=== PATIENT | female | born 1925 | race Caucasian/White ===

== ENCOUNTER 2016-09-16 12:27 | Inpatient (IN) ==
[2016-09-16 12:57] LABS: MANUAL DIFF NEEDED? NO
[2016-09-16 13:06] LABS: EOS# 0.66 X1000 (0.0-0.7); EOS% 10.7 % (0.0-10.0); HEMATOCRIT 36.4 % (37.0-47.0); HEMOGLOBIN 12.6 g/dL (12.0-16.0); LYMPH# 1.04 X1000 (1.2-3.4); LYMPH% 16.8 % (20.5-51.1); MCH 31.8 PG (27-31); MCHC 34.6 g/dL (33-37); MCV 91.9 FL (81-99); MONO# 1.02 X1000 (0.11-0.59); MONO% 16.5 % (1.7-9.3); MPV 12.6 FL (7.4-10.4); PLT 149 X1000 (130-400); RBC 3.96 XMIL (4.2-5.4)
--- NOTE | 2016-09-16 13:11 | PROVIDER DOCUMENTATION ---
HPI-General Adult - General Chief Complaint: Weakness Stated Complaint: GENERALIZED WEAKNESS Time Seen by Provider: 09/16/16 12:30 Source: patient Allergies/Adverse Reactions: Patient Allergies Allergy/AdvReac Type Severity Reaction Status Date / Time No Known Allergies Allergy Verified 09/16/16 13:05 Home Medications: Home Medication List Medication Instructions Recorded Confirmed Last Taken Type Metoprolol [Lopressor] 100 mg PO QAM 10/02/12 09/16/16 09/16/16 09:00 History PRAVAstatin [Pravachol] 10 mg PO QAM 12/28/12 09/16/16 09/16/16 09:00 History Furosemide 20 mg PO QAM 04/18/16 09/16/16 09/16/16 09:00 History Potassium Chloride E.r. [Klor-Con] 10 meq PO BID 04/18/16 09/16/16 09/16/16 09: 00 History Losartan [Cozaar] 100 mg PO DAILY 09/16/16 09/16/16 09/16/16 09:00 History Meloxicam 7.5 mg PO DAILY 09/16/16 09/16/16 09/16/16 09:00 History - History of Present Illness -Gen Adult Nature of Presenting Problems: 89 yo WF called ambulance due to weakness. Says she has diagnosed with UTI and is not sure if its gone. Also history of low Na. She wants that checked out. Noted on initial exam to be in a-fib. No PMH of this. Pain Radiation: reports: no radiation Onset/Duration: reports: 3 days ago Timing: reports: still present Context/Activities at Onset: reports: none Associated Symptoms: reports: fatigue, genitourinary problems, malaise, weakness . denies: back/neck pain, chest pain, constipation, fever/chills, syncope, vomiting Similar Symptoms Previously?: Yes Recently seen or treated by another doctor?: Yes Review of Systems - Adult - REVIEW OF SYSTEMS - ADULT Constitutional: reports: see pk VILLARREAL. denies: fever Eyes: reports: no symptoms reported Ears, Nose, Mouth & Throat: reports: no symptoms reported Cardiovascular: reports: no symptoms reported. denies: palpitations, syncope Respiratory: reports: no symptoms reported Gastrointestinal: reports: no symptoms reported Genitourinary: reports: no symptoms reported Musculoskeletal: reports: no symptoms reported Integumentary: reports: no symptoms reported Neurological: reports: no symptoms reported, other (poor hearing venecia R ear) Psychiatric: reports: no symptoms reported Endocrine: reports: no symptoms reported Hematologic/Lymphatic: reports: no symptoms reported Allergic/Immunologic: reports: no symptoms reported All Other Systems: Reviewed and Negative Past History - Adult - PAST MEDICAL HISTORY-ADULT Review of Records: reports: Old Records Reviewed, Nursing Assessment Review, Medications Reviewed, Social history reviewed & non-contributory. Cardiovascular: reports: HTN. denies: A-Fib, palpitations Respiratory: reports: denies history Gastrointestinal: reports: denies history Obstetrical/Gynecological: reports: denies history Genitourinary: reports: denies history Musculoskeletal: reports: arthritis Neurological: reports: other (hearing loss) Psychiatric: reports: denies history Endocrine/Immune: reports: denies history Other Conditions: reports: other (hyponatremia) - FAMILY HISTORY Family History: reviewed, not pertinent - SOCIAL HISTORY Smoking: denies Substance Use: none/never Alcohol Use Frequency: never Living Situation: alone Physical Exam-General - PHYSICAL EXAM-ADULT Initial Vital Signs Reviewed: Yes - CONSTITUTIONAL General Appearance: appears well, alert - EYES Eyes: PERRL/EOMI, pale conjunctivae - HEAD, EARS, NOSE, MOUTH & THROAT HENMT: normal ENT inspection. negative: moist mucous membranes - NECK Neck: non-tender, full range of motion, supple, normal inspection - RESPIRATORY Respiratory: lungs clear, normal breath sounds, no respiratory distress - CARDIOVASCULAR Cardiovascular: irregularly irregular, other (sounds like afib with BBB). negative: no gallop - GASTROINTESTINAL (ABDOMEN) Abdominal Exam: normal bowel sounds, non tender, soft - MUSCULOSKELETAL Back Exam: no CVA tenderness Extremity: no pedal edema, no calf tenderness - SKIN Integumentary: normal color - NEUROLOGIC Neurologic: grossly normal, other (very poor hearing) - PSYCHIATRIC Psych/Mental Status: normal mood/affect, normal thought content, normal thought process, oriented x 3 Progress - PLAN OF CARE/RESULTS Progress/Plan/Lab Results: Vital Signs - 8 hr 09/16/16 12:39 Temperature 97.5 F L Pulse Rate 107 H Respiratory Rate 16 Blood Pressure 169/122 O2 Sat by Pulse Oximetry 96 Orders Category Date Time Status CBC WITH ELECTRONIC DIFF [HEME] Stat Lab 09/16/16 12:52 Results CMP [COMPREHENSIVE METABOLIC PANEL] [CHEM] Stat Lab 09/16/16 12:52 Received UA [URINALYSIS] [URINALYSIS] Stat Lab 09/16/16 12:32 Uncollected EKG [EKG] Stat Ther 09/16/16 12:31 Ordered Result Diagrams: 09/16/16 12:52 09/16/16 12:52 - CONSULTS/PCP/HOSPITALIST Notification #1 *Consult/PCP/Hospitalist*: [email or web address] Time Discussed: 15:54 Consult Disposition: Will see in ED Departure - Departure Time of Disposition Decision: 15:30 DIAGNOSIS: Hyponatremia, Essential (primary) hypertension Atrial fibrillation Qualifiers: Atrial fibrillation type: unspecified Qualified Code(s): I48.91 - Unspecified atrial fibrillation Disposition: ADMITTED INPATIENT 09 Certified Medical Emergency: Urgent Condition: Stable Referrals and Follow-Ups: None,PCP [Primary Care Provider] - - Critical Care Note This patient required my direct & personal management of CC.: No
[2016-09-16 13:22] LABS: ALBUMIN 3.6 g/dL (3.5-5.0); CALCIUM 8.1 mg/dL (8.8-10.2); POTASSIUM 3.9 mmol/L (3.5-5.1); TOTAL BILIRUBIN 0.41 mg/dL (0.20-1.00); TOTAL PROTEIN 6.3 g/dL (6.3-8.3)
[2016-09-16] MEDS ORDERED: NS 250 ML IV ONE (13:37)
[2016-09-16] MEDS ORDERED: SAMSCA PO ONE ×2 (13:38→14:15)
[2016-09-16 13:56] LABS: URINE MICRO REVIEW NEEDED? NO; URINE SOURCE CLEAN CATCH
[2016-09-16 14:00] LABS: BILIRUBIN URINE NEGATIVE (NEGATIVE); BLOOD URINE NEGATIVE (NEGATIVE); COLOR YELLOW; GLUCOSE URINE NEGATIVE (NEGATIVE); LEUKOCYTES URINE SMALL (NEGATIVE); NITRITE URINE NEGATIVE (NEGATIVE); PROTEIN URINE NEGATIVE (NEGATIVE); SP GRAVITY URINE 1.005; TURBIDITY URINE CLEAR (CLEAR); UROBILINOGEN URINE NORMAL (NORMAL)
[2016-09-16 14:02] LABS: UR EPITHELIAL CELLS <10 /HPF (<10); URINE BACTERIA NEGATIVE /HPF; URINE RBC <10 /HPF (<10); URINE WBC <10 /HPF (<10)
[2016-09-16] MEDS ORDERED: LABETALOL IV ONE (14:10)
--- NOTE | 2016-09-16 15:19 | Diag Imaging Result Document ---
PROCEDURE NAME: CHEST-1 VIEW - 09/16/2016 SINGLE FRONTAL RADIOGRAPH OF THE CHEST: COMPARISON: 04/18/2016. FINDINGS: There is evidence of prior granulomatous disease, stable. There is chronic appearing interstitial thickening bilaterally throughout both lungs that is similar to the previous study. There may be a component of mild interstitial edema especially at the right lung base. Cardiac silhouette is somewhat prominent but stable. IMPRESSION: 1. Increased interstitial markings that largely appear to be chronic. However, there may be a component of interstitial edema at the right lung base. 2. Stable prominent heart.
--- NOTE | 2016-09-16 16:01 | ED EKG INTERP ---
This chart was entered by Tiffanie Cheema Scribe, acting as scribe for Tim Herman MD. EKG Interpretation - EKG Time of EKG reading by physician:: 12:28 EKG Read and Signed by:: Tim Herman EKG Interpretation (*Must complete 3 of following elements*): Abnormal Rate: 112 Rhythm: A-FIB W/RVR QRS: RBB, LVH, other (LEFT ANTERIOR FASCICULAR BLOCK, BIFASICULAR BLOCK) This chart was documented by the indicated scribe, (Tiffanie Cheema Scribe) and accurately reflects the services I performed and decisions made by me, Tim Herman MD, as attested by the provider's signature.
[2016-09-16] MEDS ORDERED: CARDIZEM 100 MG/NS 100 MG/100 ML IVPB IV SCH (17:07)
[2016-09-16] MEDS ORDERED: LABETALOL IV PRN (17:21)
[2016-09-16 17:59] LABS: FREE T4 1.39 ng/dL (0.93-1.70)
[2016-09-16] MEDS: NS 1,000 ML IV SCH (18:36)
[2016-09-16] MEDS ORDERED: CATAPRES PO SCH (21:00)
[2016-09-16] MEDS ORDERED: CARDIZEM PO SCH (21:15)
[2016-09-16] MEDS: CARDIZEM PO SCH (22:30)
[2016-09-16] MEDS: NORVASC PO SCH (22:30)
[2016-09-17 01:34] LABS: CK INDEX 1.5 (0.0-2.5); CK-MB 2.76 ng/mL (0.0-5.0)
[2016-09-17] MEDS: CARDIZEM PO SCH ×2 (04:19→20:36)
[2016-09-17 05:24] LABS: MANUAL DIFF NEEDED? NO
[2016-09-17 05:50] LABS: AGAP 9; BUN 11 mg/dL (8-22); CALCIUM 7.9 mg/dL (8.8-10.2); CHLORIDE 98 mmol/L (98-107); COSMO 271; POTASSIUM 3.4 mmol/L (3.5-5.1); SODIUM 136 mmol/L (136-145); TCO2 29 mmol/L (25-35)
[2016-09-17 05:52] LABS: EOS% 11.4 % (0.0-10.0); HEMATOCRIT 34.2 % (37.0-47.0); HEMOGLOBIN 11.5 g/dL (12.0-16.0); LYMPH# 1.39 X1000 (1.2-3.4); LYMPH% 26.5 % (20.5-51.1); MCH 31.5 PG (27-31); MCHC 33.6 g/dL (33-37); MCV 93.7 FL (81-99); MONO# 0.91 X1000 (0.11-0.59); MONO% 17.3 % (1.7-9.3); MPV 12.8 FL (7.4-10.4); NEUT% 44.8 % (42.2-75.2); PLT 145 X1000 (130-400); RBC 3.65 XMIL (4.2-5.4)
[2016-09-17] MEDS: PROTONIX PO SCH (06:18)
[2016-09-17 06:37] LABS: CK INDEX 1.5 (0.0-2.5); CK-MB 2.88 ng/mL (0.0-5.0)
[2016-09-17] MEDS: NS 1,000 ML IV SCH (07:59)
[2016-09-17] MEDS ORDERED: LOVENOX SUBQ SCH (09:00)
[2016-09-17] MEDS: LOPRESSOR PO SCH (09:22)
[2016-09-17] MEDS: NORVASC PO SCH (09:22)
[2016-09-17] MEDS: COZAAR PO SCH (09:23)
[2016-09-17] MEDS: PRAVACHOL PO SCH (09:23)
[2016-09-17] MEDS: TYLENOL PO PRN ×3 (09:33→20:38)
[2016-09-17] MEDS ORDERED: KLOR-CON PO ONE (11:21)
--- NOTE | 2016-09-17 13:24 | CONSULTATION ---
DATE OF CONSULTATION: 09/17/2016 SUBJECTIVE: Ms. Yara Carmona is an 89-year-old lady with a history of coronary artery disease, stent placement in the past, hypertension, comes with complaints of having weakness. She was diagnosed to have a UTI as well. When she came in, she was noted to be hyponatremia and was noted to be in atrial fibrillation as well and subsequently admitted. From a cardiac standpoint, she is followed by Dr. jerez her [facility] in [place]. Has an appointment to see him later this month. She denies any chest pain. She came in with complaints of generalized weakness. There was no syncopal episode. There is no history of palpitations. Per family she has not had any diagnosis of atrial fibrillation in the past. There is no history of nausea. There is no history of diarrhea. There is no hematemesis or melena. REVIEW OF SYSTEMS: A 14 point review of system was done. GI System: There is no history of hematemesis or melena. Central nervous system: No focal weakness to suggest a CVA or TIA. system: There is no dysuria at the present time. Cardiovascular System: Denies chest pain or palpitations. There is no orthopnea, paroxysmal nocturnal dyspnea. PAST MEDICAL HISTORY: 1. Coronary artery disease, myocardial infarction in the past, status post stent placement in [facility] in 2008. 2. Hypercholesterolemia. 3. Hypertension. ALLERGIES: She is not known to be allergic to any medication. MEDICATIONS: Home medications include metoprolol 100 mg q.a.m., pravastatin 10 mg, Lasix 20 mg, potassium supplements 10 b.i.d., losartan 50. In the hospital she is on amlodipine 5 b.i.d. in addition to having received Cardizem 30 mg q.6 hourly. SOCIAL HISTORY: She does not smoke. Does not drink. PHYSICAL EXAMINATION: Vital Signs: Blood pressure was 131/68. Cardiovascular System: Normal jugular venous pressure. There is no thyromegaly. No carotid bruit. First and second heart sounds heard. There is a faint systolic murmur. There was no S3 gallop. Respiratory System: Normal air entry. There are no crepitations or rhonchi. Abdomen: Soft, nontender. There was no guarding or rigidity. Bowel sounds were heard. Central nervous system: Alert , oriented. Was moving all 4 extremities. Patient is hard of hearing. There was no pedal edema. LABORATORY EXAMINATION: Revealed sodium 125, potassium 3.9, BUN 15, creatinine 0.9. Cardiac enzymes were negative. Electrolytes this morning, sodium 136, potassium 3.4, BUN 11, creatinine 0.8. Hemoglobin 11.5, platelet count of 145,000, WBC 5.25, hematocrit 34.2. Chest x-ray: Chronic interstitial markings, stable cardiac size. Electrocardiogram revealed atrial fibrillation, right bundle branch block. There were no acute ST-T changes to suggest ischemia or infarction. Cardiac enzymes were negative. ASSESSMENT AND PLAN: 1. Ms. Yara Carmona is an 89-year-old lady with known coronary artery disease, stent placement in the past, hypertension, comes with complaints of weakness. Was noted to be severely hyponatremic and in atrial fibrillation. She was given IV fluids and Samsca. Her hyponatremia has been corrected. Potassium was low; that has been repleted. Her atrial fibrillation is probably secondary to electrolyte imbalance. Regardless, she is in atrial fibrillation. We will continue her beta-blockers and discontinue her Norvasc and decrease her Cardizem to 30 mg p.o. b.i.d. I had a detailed discussion with the patient' s family. Given her atrial fibrillation, would recommend anticoagulation for stroke prophylaxis. They would want to discuss with other family members before she is to be started on any oral anticoagulation therapy. We will wait on their instructions. In the interim I have given her Lovenox 1 mg/kg subcutaneously twice daily. 2. She has known coronary artery disease. We will get an echocardiogram to assess cardiac and valvular function. We will get serum magnesium levels in the morning and set her up to undergo a Cardiolite stress test to assess for and rule out ischemia given her known coronary artery disease and stent placement. Thank you for the consult. We will follow the hospital course. cc: Jhon Styles MD [facility]
--- NOTE | 2016-09-17 15:13 | ECHO REPORT ---
ORDER DATE: 09/17/2016 ECHOCARDIOGRAPHIC MEASUREMENTS: 1. Interventricular septum 1.3. Left ventricular posterior wall 1.0. Diastolic diameter 3.5. Left atrium 3.0. Aorta 3.8. Aortic valve leaflets are sclerosed, trileaflet, opening normally. Pulmonic valve was normal. There is trace pulmonary regurgitation. Mitral valve was normal. Tricuspid valve was normal. 2. There is mild to moderate tricuspid regurgitation. Peak velocity across the tricuspid valve was 3 m/sec. Pulmonary artery systolic pressure 46 mmHg. 3. There is moderate mitral regurgitation. 4. Peak velocity across the aortic valve less than 2 m/sec. There is no aortic stenosis. There is aortic sclerosis associated with mild aortic regurgitation. 5. There is mild left atrial enlargement. 6. Normal left ventricular cavity size. Borderline left ventricular hypertrophy. Estimated ejection fraction of -60%. 7. There is no pericardial effusion or obvious intracardiac mass or thrombus seen. cc: MD Ness Meyer MD
--- NOTE | 2016-09-17 15:18 | HISTORY AND PHYSICAL ---
CHIEF COMPLAINT: "I felt weak and just did not feel well at home." HISTORY OF PRESENT ILLNESS: Ms. Carmona is an 89-year-old female with a history of hypertension and dyslipidemia who stated that she called EMS after she started to feel very weak at home. The patient stated that she was concerned that she might have had a urinary tract infection or that her sodium might be low. The patient reports that she does have a history of chronic hyponatremia. Upon arrival to the ER, the patient was a noted to be in atrial fibrillation and her blood pressure was elevated at 169/122. The patient states that she is followed by Dr. Joan Jimenez in [place] for her cardiac issues. The patient does complain of occasional swelling in her legs. She denies having any chest pain, but states that she did feel like her heart was racing prior to coming to the ER. She denies having any fever or chills. A urinalysis was done in the ER and was noted to be unremarkable. PAST MEDICAL HISTORY: 1. Hypertension. 2. Dyslipidemia. 3. Osteoarthritis. 4. Constipation. 5. Mitral regurgitation. 6. CAD s/p stent. PAST SURGICAL HISTORY: 1. Coronary stent. 2. Left hip replacement. 3. Right knee replacement. 4. Bilateral cataract surgery. FAMILY HISTORY: Positive for hypertension. SOCIAL HISTORY: The patient currently lives at home with her son. She denies any tobacco, alcohol or illicit drug use. HOME MEDICATIONS: 1. Meloxicam 7.5 mg p.o. daily. 2. Cozaar 100 mg p.o. daily. 3. Klor-Con 10 mg mEq oral twice a day. 4. Pravastatin 10 mg p.o. every morning. 5. Metoprolol 100 mg p.o. every morning. 6. Lasix 20 mg p.o. every morning. ALLERGIES: No known drug allergies. REVIEW OF SYSTEMS: All other review of systems are negative. Please refer to the history of present illness for pertinent positives and negatives. PHYSICAL EXAMINATION: VITAL SIGNS: Temperature 97.5 degrees, blood pressure 169/122, heart rate 107, respirations 16, O2 saturations 96% on room air. GENERAL: This is a chronically ill-appearing, elderly female, lying in bed, in no acute distress. HEAD: Normocephalic, atraumatic. Eyes conjunctivae clear, EOMI, PERRLA. NECK: Supple no JVD. No lymphadenopathy. LUNGS: Clear to auscultation bilaterally. No crackles. No rales. HEART: S1, S2. Normal. Irregularly irregular rhythm. ABDOMEN: Positive bowel sounds. Soft, nontender, nondistended. EXTREMITIES: +1 edema. No cyanosis. No calf tenderness. NEUROLOGIC: The patient is alert and oriented x3. No focal neurologic deficits noted. LABORATORY: White blood cell count 6.1, hemoglobin 12, hematocrit 36, platelets 149,000. Sodium 129, potassium 3.9, chloride 87, CO2 28, BUN 15, creatinine 0.9, glucose 109, calcium 8.1, AST 54, ALT 42, alkaline phosphatase 62. CK 184, albumin 3.6. UA negative. Chest x- ray shows chronic interstitial markings. EKG shows atrial fibrillation with a rate of 112. ASSESSMENT AND PLAN: 1. New onset atrial fibrillation. The patient reports that she does not have a history of atrial fibrillation. The patient's heart rate is in the 90s at this time. We will continue the patient's metoprolol and start Cardizem. We will order a 2-dimensional echocardiogram and consult Cardiology for further recommendations. The patient's thyroid function appears to be normal. 2. Hyponatremia. The patient received a dose of Samsca while in the emergency room. We will repeat the sodium level in the morning. 3. Coronary artery disease status post stent. Aware. Continue on the current cardiac medications. 4. Generalized weakness. We will consult Physical Therapy. 5. Accelerated hypertension. We will restart the patient's home antihypertensives and monitor the blood pressure closely. 6. Deep vein thrombosis prophylaxis. We will start the patient on Lovenox. cc: Ness Quintanilla MD [facility]
[2016-09-17] MEDS: LOVENOX SUBQ SCH (20:36)
[2016-09-18 05:35] LABS: MANUAL DIFF NEEDED? NO
--- NOTE | 2016-09-18 05:52 | EKG Report ---
Test Performed on : 09/17/2016 06:31:23 AM Test Reason : afib Blood Pressure : / mmHG Vent. Rate : 071 BPM Atrial Rate : 071 BPM P-R Int : 000 ms QRS Dur : 132 ms QT Int : 468 ms P-R-T Axes : 000 -60 025 degrees QTc Int : 508 ms Atrial fibrillation. Right bundle branch block Left anterior fascicular block Bifascicular block Minimal voltage criteria for LVH, may be normal variant Abnormal ECG When compared with ECG of 16-SEP-2016 12:28, Vent. rate has decreased BY 41 BPM Confirmed by Ed MAYEN, Jude Berry ([id number]) on 09/18/2016 11:22:36 AM
--- NOTE | 2016-09-18 06:14 | EKG Report ---
Test Performed on : 09/16/2016 12:28:20 PM Test Reason : CP Blood Pressure : / mmHG Vent. Rate : 112 BPM Atrial Rate : 117 BPM P-R Int : 000 ms QRS Dur : 126 ms QT Int : 318 ms P-R-T Axes : 000 -65 065 degrees QTc Int : 434 ms Atrial fibrillation. with rapid ventricular response. Right bundle branch block Left anterior fascicular block Bifascicular block Minimal voltage criteria for LVH, may be normal variant Abnormal ECG When compared with ECG of 18-APR-2016 20:53, Atrial fibrillation. has replaced Sinus rhythm. Minimal criteria for Septal infarct are no longer present ST no longer elevated in Inferior leads Unconfirmed Result
[2016-09-18] MEDS: PROTONIX PO SCH (06:15)
[2016-09-18 06:27] LABS: EOS# 0.56 X1000 (0.0-0.7); EOS% 9.9 % (0.0-10.0); HEMATOCRIT 32.9 % (37.0-47.0); LYMPH# 1.18 X1000 (1.2-3.4); MCH 31.6 PG (27-31); MCHC 33.4 g/dL (33-37); MCV 94.5 FL (81-99); MONO# 0.92 X1000 (0.11-0.59); MONO% 16.3 % (1.7-9.3); MPV 12.7 FL (7.4-10.4); NEUT% 52.8 % (42.2-75.2); PLT 144 X1000 (130-400); RBC 3.48 XMIL (4.2-5.4)
[2016-09-18 06:55] LABS: CALCIUM 7.6 mg/dL (8.8-10.2); POTASSIUM 4.2 mmol/L (3.5-5.1)
[2016-09-18] MEDS: PRAVACHOL PO SCH (09:18)
[2016-09-18] MEDS: CARDIZEM PO SCH ×2 (09:18→20:29)
[2016-09-18] MEDS: LOPRESSOR PO SCH (09:18)
[2016-09-18] MEDS: COZAAR PO SCH (09:18)
[2016-09-18] MEDS: LOVENOX SUBQ SCH ×2 (09:19→20:29)
[2016-09-18] MEDS ORDERED: LASIX IV ONE (09:27)
[2016-09-18] MEDS ORDERED: MAGNESIUM SULFATE 4 GM/S.W.I. 4 GM/100 ML IVPB IV ONE (09:34)
[2016-09-18] MEDS: ZOFRAN IV PRN ×2 (09:46→17:35)
--- NOTE | 2016-09-18 10:06 | Diag Imaging Result Document ---
PROCEDURE NAME: CHEST-PORTABLE - 09/18/2016 PORTABLE CHEST: COMPARISON: Compared to 09/16/2016. FINDINGS: The lungs are well expanded. The heart is borderline mildly prominent although this is an AP upright exam. The vessels are not distended. There are calcified hilar lymph nodes with scattered granuloma. No consolidation. No pleural effusions identified. Longstanding arthritic changes to each shoulder. IMPRESSION: Stable chest.
--- NOTE | 2016-09-18 14:09 | PROGRESS NOTE ---
DATE: 09/13/2016 SUBJECTIVE: Patient has no focal complaints. OBJECTIVE: Vital signs: Blood pressure 128/68, heart rate of 88, respiratory 16, temperature 97 degrees, 100% on 2 L. Cardiovascular: Regular rate and rhythm. Pulmonary: Bilateral breath sounds. Clear to auscultation. GI: Soft, nontender, nondistended. Bowel sounds are positive. LABORATORY DATA: Sodium 133, magnesium of 1.3. PROBLEM LIST: 1. Atrial fibrillation with rapid ventricular response. She is now rate controlled. However, I am not sure if she symptomatic. She does not have any chest pain or anything. She has known CAD, so Lexiscan is placed for tomorrow. She is currently on Lopressor 100 daily and Cardizem 30 b.i.d. Further recommendations per cardiology. Her magnesium is low so that will be supplemented. She does seem to be a little bit more winded today but she got an extra dose of Lasix per cardiology this morning. 2. Hyponatremia. Had improved with Samsca. Is down a little bit again today. She may need subsequent dosing. I am just going to kind of watch her right now. We may give her additional doses. 3. Anemia. Make sure to Hemoccult her stools. She is on anticoagulation. We will follow. I do not think she is getting any iron supplementation. So, we will monitor. Right now she has normocytic indices but we will monitor her labs. 4. Elevated liver enzymes. Unclear etiology there. We will continue to monitor closely. cc: Fercho Nugent MD
[2016-09-18] MEDS: TYLENOL PO PRN ×2 (17:35→23:01)
[2016-09-19 05:18] LABS: HEMATOCRIT 32.5 % (37.0-47.0); HEMOGLOBIN 10.8 g/dL (12.0-16.0); MCHC 33.2 g/dL (33-37); MCV 96.2 FL (81-99); MPV 12.6 FL (7.4-10.4); RBC 3.38 XMIL (4.2-5.4)
[2016-09-19 05:39] LABS: CALCIUM 7.3 mg/dL (8.8-10.2); MAGNESIUM 1.7 mg/dL (1.5-2.7); POTASSIUM 3.3 mmol/L (3.5-5.1)
[2016-09-19] MEDS: PROTONIX PO SCH (06:07)
[2016-09-19] MEDS: LOVENOX SUBQ SCH (08:56)
[2016-09-19] MEDS: POTASSIUM CHLORIDE 20 MEQ/SWI 20 MEQ/100 ML IVPB IV SCH ×2 (09:51→15:36)
--- NOTE | 2016-09-19 12:30 | PROGRESS NOTE ---
DATE: 09/19/2016 SUBJECTIVE: Patient has no focal complaints. She feels like she has rested better. OBJECTIVE: Vital signs: Blood pressure is 154/88, heart rate 99, respiratory rate 18, temperature 97.5 degrees, 100% on 2L. Cardiovascular: Regular rate and rhythm. Pulmonary: Bilateral breath sounds. Clear to auscultation. Gastrointestinal: Soft, nontender, nondistended. Bowel sounds are positive. LABORATORY DATA: Hemoglobin and hematocrit 10 and 32. White count 6. Potassium is 3.3. B12 normal. Folate normal. PROBLEM LIST: 1. Atrial fibrillation with rapid ventricular response. She is rate controlled on her current Cardizem and Lopressor. Plan was for Lexiscan today, but she had some Coke this morning. She reports it was caffeine-free. Hopefully, that does not delay the stress test another 24 hours, but we are in the process of trying to work through that. 2. Hyponatremia that seems to be improving. 3. Hypokalemia. Will supplement and follow. 4. Anemia. We will continue to monitor on current anticoagulation. Hemoglobin and hematocrit have dropped somewhat; however, there is no gross evidence of bleeding. Hemoccult is pending. DISPOSITION: Pending the rest of her workup. We will continue to follow. cc: Fercho Nugent MD
[2016-09-19] MEDS ORDERED: LEXISCAN ONE (13:30)
[2016-09-19] MEDS: CARDIZEM PO SCH (15:43)
[2016-09-19] MEDS: COZAAR PO SCH (15:43)
[2016-09-19] MEDS: LOPRESSOR PO SCH (15:43)
[2016-09-19] MEDS: PRAVACHOL PO SCH (15:43)
[2016-09-19] MEDS: LASIX PO SCH (15:43)
--- NOTE | 2016-09-19 15:51 | Diag Imaging Result Document ---
PROCEDURE NAME: MYOCARDIAL PERF SCAN, STR/REST - 09/19/2016 INDICATION: Dyspnea. CHF. Atrial fibrillation. PROCEDURES PERFORMED: 1. One-day stress rest myocardial perfusion imaging. 2. Lexiscan stress. PROCEDURE IN DETAIL: Ms Carmona was brought to the nuclear laboratory and had a resting study with injection of 10.5 mCi of technetium-99m sestamibi with usual imaging protocol utilized. She subsequently was brought back down and had a Lexiscan stress and at peak stress, was injected with 26 mCi of technetium-99m sestamibi with usual imaging protocol utilized. FINDINGS: LEXISCAN STRESS RESULTS: 1. Baseline EKG shows atrial fibrillation, right bundle branch block. 2. Lexiscan stress did not demonstrate any clear evidence of ischemic related EKG changes or significant arrhythmias other than the baseline atrial fibrillation noted. There were some PVCs versus aberrantly conducted beats noted. PERFUSION IMAGING RESULTS: 1. No evidence of abnormal extracardiac uptake. 2. TID ratio is 1.16. 3. Perfusion imaging demonstrates normal homogenous uptake of radiotracer throughout the myocardial segments. 4. There is a normal ejection fraction of 72%. The end-diastolic volume is 76, end-systolic volume of 21. Normal wall motion. cc: MD Lety Parikh PA
[2016-09-19] MEDS: CARDIZEM CD PO SCH (16:26)
[2016-09-19 17:22] LABS: INR 1.06; PROTIME 11.2 Seconds (9.2-11.7)
[2016-09-19] MEDS ORDERED: COUMADIN PO SCH (21:00)
[2016-09-20] MEDS: TYLENOL PO PRN (01:22)
[2016-09-20] MEDS: ZOFRAN IV PRN (01:29)
[2016-09-20 05:21] LABS: HEMATOCRIT 33.4 % (37.0-47.0); HEMOGLOBIN 10.9 g/dL (12.0-16.0); MCH 31.5 PG (27-31); MCHC 32.6 g/dL (33-37); MCV 96.5 FL (81-99); MPV 12.7 FL (7.4-10.4); RBC 3.46 XMIL (4.2-5.4)
[2016-09-20 05:30] LABS: AGAP 8; BUN 8 mg/dL (8-22); CALCIUM 7.1 mg/dL (8.8-10.2); CHLORIDE 95 mmol/L (98-107); COSMO 260; POTASSIUM 3.6 mmol/L (3.5-5.1); SODIUM 130 mmol/L (136-145); TCO2 27 mmol/L (25-35)
[2016-09-20 05:46] LABS: INR 1.04; PROTIME 10.9 Seconds (9.2-11.7)
[2016-09-20] MEDS: PROTONIX PO SCH (06:10)
[2016-09-20] MEDS ORDERED: CALMOSEPTINE OINTMENT TOP PRN (06:21)
[2016-09-20 08:04] VITALS: BP 145/76
[2016-09-20] MEDS: LOPRESSOR PO SCH (09:54)
[2016-09-20] MEDS: CARDIZEM CD PO SCH (09:54)
[2016-09-20] MEDS: LASIX PO SCH (09:54)
[2016-09-20] MEDS: PRAVACHOL PO SCH (09:54)
[2016-09-20] MEDS: COZAAR PO SCH (09:54)
--- NOTE | 2016-09-20 13:07 | DISCHARGE SUMMARY ---
ADMISSION DATE: 09/16/2016 DISCHARGE DATE: 09/20/2016 CONSULTATIONS: Dr. Styles with Cardiology. PERTINENT PROCEDURES: 1. Echocardiogram showed an EF of 60%, borderline LVH. 2. One-day stress-rest myocardial perfusion imaging. Baseline EKG showed atrial fibrillation with a right bundle branch block. There was no clear evidence of any ischemic- related EKG changes or significant arrhythmias other than baseline atrial fibrillation. Perfusion imaging revealed a normal. DISCHARGE DIAGNOSES: 1. Atrial fibrillation, rate controlled. Patient has been initiated on Cardizem and continued on her home Lopressor. She had a negative Lexiscan. She has been initiated on Coumadin. Patient received her first dose last night of 5 mg. She will be discharged on 5 mg. I called and spoke with Dr. Kirsty Jerez's nurse. We will have her to come to [facility] on Sunday to recheck her PT and INR. We will have the results faxed to them, and in the meantime, they will be setting up her somewhere for an outpatient basis. Patient remains rate controlled. 2. Hyponatremia, improving. 3. Hypokalemia, resolved. 4. Anemia. Hemoglobin and hematocrit are stable. Hemodynamically the patient has remained stable. HOSPITAL COURSE: Ms. Carmona is an 89-year-old female with a history of hypertension, dyslipidemia, osteoarthritis, constipation, mitral regurgitation, and CAD status post stenting. Ms. Carmona called EMS secondary to feeling very weak at home. She was concerned that she might have a urinary tract infection and that her sodium might be low. She reported that she does have a history of chronic hyponatremia. Upon arrival to the ED, the patient was noted to be in atrial fibrillation, and her blood pressure was elevated 169/122. She is followed by Dr. Kirsty Jerez in [place] for her cardiac issues. She denied any chest pain, but she did feel like her heart was racing prior to coming to the ED. Her urinalysis was unremarkable. Patient was admitted for new- onset atrial fibrillation. She was continued on her home metoprolol and started on Cardizem p.o. She underwent an echocardiogram as well as a Cardiology consult. Her thyroid function was normal. She was also initiated on gentle hydration for her hyponatremia. Patient did undergo a stress test that was normal. She was initiated on Coumadin for stroke prophylaxis. Cardiology did speak with them about newer agents. However, they opted for the Coumadin. They did understand that they will have to go for frequent blood checks, and I have spoken with Dr. Kirsty Jerez's nurse. They will have her come in to [facility] as an outpatient to have her PT and INR drawn on 09/22/2016, and we will have those results faxed to his office, and in the interim, they will work on getting her a place to have her lab draws done on a regular basis. Patient is appropriate for discharge today, and Cardiology also did give a dose of Samsca for her hyponatremia. PT and INR at discharge were 10.9 and 1.04. She did receive 5 mg of Coumadin on 09/19/2016. VITAL SIGNS AT TIME OF HER DISCHARGE: Temperature is 97.8, heart rate 85, respirations 16. Blood pressure is 145/76. O2 is 100%. DISCHARGE DIET: Healthy Heart. DISCHARGE MEDICATION: 1. Cardizem CD 120 mg p.o. daily. 2. Lasix 20 mg p.o. q. a.m. 3. Cozaar 100 mg p.o. daily. 4. Meloxicam 7.5 mg p.o. daily. 5. Lopressor 100 mg p.o. q. a.m. 6. Klor-Con 10 mEq p.o. b.i.d. 7. Pravachol 10 mg p.o. q. a.m. 8. Senokot one each p.o. daily. 9. Coumadin 5 mg p.o. daily. FOLLOWUP: Patient is being discharged home with family. She is to follow up at [facility] for PT and INR lab draw on 09/22/2016. Those results will be faxed to Dr. Kirsty Jerez's office. They will call her with any medication adjustments of her Coumadin, and in the interim, they will be setting her up at a location to have her lab draws done regularly. She will need to follow up with her primary care physician as well as Dr. Kirsty Jerez, her stores assistant. Patient can return to the ED for any worsening of symptoms. She has also been educated what to watch out for with her new medication of Coumadin with any extra bleeding. Patient can return to the Emergency Department for any worsening of symptoms. Dictated by CEM Acuña for Fercho Nugent MD cc: MD Dr. Kirsty Lozano at [place], stores assistant pt examined, need to make sure and check pt/inr in 48 hours and set up followup inr with kirsty jerez at discharge from rehab [facility]
--- NOTE | 2016-09-20 13:08 | DISCHARGE SUMMARY ---
ADMISSION DATE: 09/16/2016 DISCHARGE DATE: ADDENDUM: Ms Carmona will be discharged to [facility] instead of going home with family. We will have them recheck her INR on 09/22/2016 and hold her Coumadin if her INR is greater than 3, and they will contact the medical data entry clerk for further instructions. Ms Carmona will follow up with Dr. Joan Jimenez, her energy systems laboratory director at [place], after rehab. Dictated by CEM Acuña for Fercho Nugent MD cc: Fercho Nugent MD
== END 2016-09-20 14:20 ==
LOC: ED 12:27 → EDIPHOLD 17:44 → SUATTDRO 17:44 → 3S 21:37
PROVIDERS: ATTEND Internal Medicine